=== PATIENT | male | born 1955 | race African-American/Black ===

== ENCOUNTER 2021-11-29 19:29 | Inpatient (IN) | payer BC, MEDICARE ==
[~2021-11-29] VITALS: Ht 190.5 cm; Wt 132.9 kg
[2021-11-29 21:16] LABS: HEMATOCRIT. 35.8 % (42.0-52.0); HEMOGLOBIN. 11.7 g/dL (14.0-18.0); MEAN CORPUSCULAR HEMOGLOBIN 27.6 pg (28.0-32.0); MEAN CORPUSCULAR VOLUME 84.1 fL (80.0-94.0); MEAN PLATELET VOLUME 8.7 fl (7.4-10.4); PLATELET 112 x1000/uL (130-400); RED BLOOD CELL COUNT 4.25 mill/uL (4.7-6.1); RED CELL DISTRIBUTION WIDTH 17.6 % (11.6-14.6)
[2021-11-29 21:17] LABS: CHLORIDE 98 mEq/L (98-107)
[2021-11-29 21:19] LABS: INR 1.3; PROTHROMBIN TIME 14.1 sec (9.6-11.0)
[2021-11-29] MEDS ORDERED: FUROSEMIDE 100MG/10ML VIAL IVP ONE (21:30)
[2021-11-29] MEDS ORDERED: ASPIRIN 325MG EC TABLET PO ONE (21:45)
[2021-11-29 21:53] LABS: PLATELET ESTIMATE DECREASED
[2021-11-29] MEDS ORDERED: HEPARIN 25,000 UNITS PREMIX 250 ML IV PRN (22:00)
[2021-11-29] MEDS ORDERED: HEPARIN 5000 UNITS/ML VIAL IV SCH (22:00)
[2021-11-29] MEDS ORDERED: HEPARIN BOLUS PRN aPTT 30-44 IV (22:15)
[2021-11-29] MEDS ORDERED: ASPIRIN 325MG EC TABLET PO SCH (23:45)
[2021-11-29] MEDS ORDERED: FUROSEMIDE 100MG/10ML VIAL IVP SCH (23:45)
[2021-11-30] VITALS (7 sets, daily range): BP systolic 101–123; BP diastolic 50–68
[2021-11-30] MEDS ORDERED: IPRATROPIUM/ALBUTEROL 0.5-3(2.5)MG/3ML NEB NEB PRN
[2021-11-30] MEDS ORDERED: LORAZEPAM 2MG/ML CPJ IV PRN
[2021-11-30] MEDS ORDERED: MORPHINE SULFATE 2 MG/ML CPJ (NOT FOR IM USE) IV PRN
[2021-11-30] MEDS ORDERED: CLONIDINE 0.1MG TABLET PO PRN
[2021-11-30] MEDS ORDERED: HEPARIN 60 UNITS/KG BOLUS IV SCH (00:30)
[2021-11-30] MEDS ORDERED: HEPARIN BOLUS PRN aPTT 30-44 IV (01:00)
[2021-11-30] MEDS ORDERED: HEPARIN 25,000 UNITS PREMIX 250 ML IV SCH (01:00)
[2021-11-30] MEDS ORDERED: HEPARIN BOLUS PRN aPTT <30 IV (01:00)
[2021-11-30] MEDS: ONDANSETRON HCL 4MG/2ML INJ IV PRN (02:26)
[2021-11-30 05:11] LABS: HEMATOCRIT. 35.2 % (42.0-52.0); HEMOGLOBIN. 11.3 g/dL (14.0-18.0); MEAN CORPUSCULAR VOLUME 83.9 fL (80.0-94.0); MEAN PLATELET VOLUME 9.3 fl (7.4-10.4); PLATELET 120 x1000/uL (130-400); RED CELL DISTRIBUTION WIDTH 17.4 % (11.6-14.6)
[2021-11-30 05:23] LABS: CREATINE KINASE MB FRACTION 1.7 ng/mL (0.5-3.6)
[2021-11-30 08:22] LABS: CREATINE KINASE MB FRACTION 2.4 ng/mL (0.5-3.6)
[2021-11-30] MEDS ORDERED: FUROSEMIDE 40MG/4ML VIAL IV SCH ×2 (09:00→18:00)
[2021-11-30 09:16] LABS: CLARITY URINE CLOUDY (CLEAR); COLOR URINE ORANGE (YELLOW); KETONES URINE TRACE (NEGATIVE); LEUKOCYTE ESTERASE URINE TRACE (NEGATIVE); NITRITE URINE POSITIVE (NEGATIVE); OCCULT BLOOD URINE TRACE (NEGATIVE); PROTEIN URINE 2+ (NEGATIVE); SPECIFIC GRAVITY URINE 1.017 (1.005-1.030)
[2021-11-30 09:23] LABS: *AMPHETAMINES SCREEN URINE NEGATIVE (NEGATIVE); *BARBITURATES SCREEN URINE NEGATIVE (NEGATIVE); *BENZODIAZEPINES SCREEN URINE NEGATIVE (NEGATIVE); *COCAINE SCREEN URINE NEGATIVE (NEGATIVE); CANNABINOID URINE SCREEN NEGATIVE (NEGATIVE); METHADONE URINE SCREEN NEGATIVE (NEGATIVE); OPIATES URINE SCREEN PRESUMTIVE POSITIVE (NEGATIVE); PHENCYCLIDINE URINE SCREEN NEGATIVE (NEGATIVE)
[2021-11-30 10:25] LABS: PLATELET ESTIMATE SLIGHTLY DECREASED
[2021-11-30] MEDS ORDERED: CEFTRIAXONE 1 G PREMIX 50 ML IV SCH (10:45)
[2021-11-30] MEDS ORDERED: NALOXONE HCL 0.4MG/ML VIAL IV PRN (10:45)
[2021-11-30] MEDS ORDERED: DEXTROSE 50% WATER 50ML SYRINGE IV PRN (10:45)
[2021-11-30] MEDS ORDERED: HYDROCODONE/ACETAMINOPHEN 5/325MG TABLET PO PRN ×2 (10:45)
[2021-11-30] MEDS ORDERED: CEFTRIAXONE 1,000 MG in DEXTROSE 5% WATER 50 ML IV SCH ×2 (11:00→13:00)
[2021-11-30] MEDS: BLOOD SUGAR DIAGNOSTIC STRIP TEST SCH ×4 (12:14→21:35)
[2021-11-30] MEDS: INSULIN LISPRO 100 UNITS/ML SUBCUT SCH ×3 (12:15→21:00)
[2021-11-30] MEDS: ENOXAPARIN 150MG/ML SYR SUBCUT SCH (12:22)
[2021-11-30] MEDS: METOPROLOL TARTRATE 25MG TABLET PO SCH ×2 (12:22→21:00)
[2021-11-30] MEDS: ACETAMINOPHEN 325MG TABLET PO PRN (16:19)
[2021-11-30 16:20] LABS: BG BASE EXCESS -2.2 mmol/L (-2.0-2.0); BG CARBOXYHEMOGLOBIN 0.9 % (0.5-1.5); BG DEOXYHEMOGLOBIN 3.6 % (0.0-5.0); BG FRACTION INSPIRED OXYGEN 36; BG HCO3 ACT 21.1 mmol/L (22.0-26.0); BG METHEMOGLOBIN 0.2 % (0.0-1.5); BG OXYGEN SATURATION 96.4 % (92.0-98.5); BG OXYHEMOGLOBIN 95.3 % (94.0-97.0); BG PCO2 31.6 mmHg (35.0-45.0); BG PH 7.442 (7.350-7.450); BG PO2 83.4 mmHg (75.0-100.0); BG TOTAL HEMOGLOBIN 12.6 g/dL (12.0-18.0); BG VENT MODE NASAL CANNULA
[2021-11-30] MEDS: FUROSEMIDE 100MG/10ML VIAL IV SCH (17:38)
[2021-12-01] VITALS (12 sets, daily range): BP systolic 92–137; BP diastolic 51–80
[2021-12-01] MEDS: FUROSEMIDE 100MG/10ML VIAL IV SCH (05:46)
[2021-12-01 06:29] LABS: HEMATOCRIT. 33.7 % (42.0-52.0); HEMOGLOBIN. 11.2 g/dL (14.0-18.0); MEAN CORPUSCULAR HEMOGLOBIN 27.5 pg (28.0-32.0); MEAN CORPUSCULAR VOLUME 82.7 fL (80.0-94.0); MEAN PLATELET VOLUME 10.2 fl (7.4-10.4); PLATELET 104 x1000/uL (130-400); RED BLOOD CELL COUNT 4.07 mill/uL (4.7-6.1); RED CELL DISTRIBUTION WIDTH 17.5 % (11.6-14.6)
[2021-12-01] MEDS: BLOOD SUGAR DIAGNOSTIC STRIP TEST SCH ×4 (07:30→21:00)
[2021-12-01 08:40] LABS: PLATELET ESTIMATE DECREASED
[2021-12-01] MEDS: INSULIN LISPRO 100 UNITS/ML SUBCUT SCH ×4 (08:53→21:00)
[2021-12-01] MEDS: CEFTRIAXONE 1,000 MG in DEXTROSE 5% WATER 50 ML IV SCH (08:54)
[2021-12-01] MEDS: METOPROLOL TARTRATE 25MG TABLET PO SCH ×3 (08:54→21:00)
[2021-12-01] MEDS: FAMOTIDINE 20MG/2ML VIAL IV SCH (08:55)
[2021-12-01] MEDS: ENOXAPARIN 150MG/ML SYR SUBCUT SCH (13:55)
[2021-12-01 14:15] LABS: PHOSPHORUS 4.5 mg/dL (2.5-4.9)
[2021-12-01] MEDS: ACETAMINOPHEN 325MG TABLET PO PRN (20:14)
[2021-12-01 22:55] LABS: BG BASE EXCESS -1.9 mmol/L (-2.0-2.0); BG DEOXYHEMOGLOBIN 9.5 % (0.0-5.0); BG FRACTION INSPIRED OXYGEN 32; BG HCO3 ACT 21.8 mmol/L (22.0-26.0); BG METHEMOGLOBIN 0.2 % (0.0-1.5); BG OXYGEN SATURATION 90.4 % (92.0-98.5); BG OXYHEMOGLOBIN 89.3 % (94.0-97.0); BG PCO2 34.2 mmHg (35.0-45.0); BG PH 7.423 (7.350-7.450); BG PO2 58.9 mmHg (75.0-100.0); BG SAMPLE SITE RIGHT RADIAL; BG TOTAL HEMOGLOBIN 12.8 g/dL (12.0-18.0); BG VENT MODE NASAL CANNULA
[2021-12-02] VITALS (12 sets, daily range): BP systolic 121–143; BP diastolic 58–70
[2021-12-02 06:58] LABS: HEMATOCRIT. 35.1 % (42.0-52.0); HEMOGLOBIN. 11.3 g/dL (14.0-18.0); MEAN CORPUSCULAR HEMOGLOBIN 26.6 pg (28.0-32.0); MEAN CORPUSCULAR VOLUME 82.5 fL (80.0-94.0); MEAN PLATELET VOLUME 10.1 fl (7.4-10.4); PLATELET 110 x1000/uL (130-400); RED BLOOD CELL COUNT 4.25 mill/uL (4.7-6.1); RED CELL DISTRIBUTION WIDTH 17.6 % (11.6-14.6)
[2021-12-02] MEDS: BLOOD SUGAR DIAGNOSTIC STRIP TEST SCH ×4 (07:30→20:57)
[2021-12-02] MEDS ORDERED: LIDOCAINE HCL/PF 1% 10 MG/ML 5ML VIAL ONE (08:59)
[2021-12-02] MEDS: METOPROLOL TARTRATE 25MG TABLET PO SCH ×2 (09:00→20:59)
[2021-12-02 09:28] LABS: NUCLEATED RED BLOOD CELLS 1 /100 WBC; PLATELET ESTIMATE DECREASED
[2021-12-02] MEDS: CEFTRIAXONE 1,000 MG in DEXTROSE 5% WATER 50 ML IV SCH (10:29)
[2021-12-02] MEDS: FAMOTIDINE 20MG/2ML VIAL IV SCH (10:30)
[2021-12-02] MEDS: INSULIN LISPRO 100 UNITS/ML SUBCUT SCH ×4 (10:31→20:57)
[2021-12-02] MEDS: ENOXAPARIN 150MG/ML SYR SUBCUT SCH (12:25)
[2021-12-02] MEDS: MEROPENEM 1,000 MG in SODIUM CHLORIDE 0.9% 100 ML IV SCH (16:43)
[2021-12-03] VITALS (11 sets, daily range): BP systolic 100–151; BP diastolic 51–76
[2021-12-03 06:10] LABS: HEMATOCRIT. 35.4 % (42.0-52.0); HEMOGLOBIN. 11.6 g/dL (14.0-18.0); MEAN CORPUSCULAR HEMOGLOBIN 26.8 pg (28.0-32.0); MEAN CORPUSCULAR VOLUME 81.8 fL (80.0-94.0); MEAN PLATELET VOLUME 9.4 fl (7.4-10.4); PLATELET 103 x1000/uL (130-400); RED BLOOD CELL COUNT 4.33 mill/uL (4.7-6.1); RED CELL DISTRIBUTION WIDTH 17.4 % (11.6-14.6)
[2021-12-03] MEDS: INSULIN LISPRO 100 UNITS/ML SUBCUT SCH ×4 (08:00→21:34)
[2021-12-03] MEDS: BLOOD SUGAR DIAGNOSTIC STRIP TEST SCH ×4 (08:10→21:29)
[2021-12-03] MEDS: METOPROLOL TARTRATE 25MG TABLET PO SCH ×2 (09:00→21:27)
[2021-12-03 09:41] LABS: NUCLEATED RED BLOOD CELLS 1 /100 WBC
[2021-12-03 09:43] LABS: PLATELET ESTIMATE DECREASED
[2021-12-03] MEDS: FAMOTIDINE 20MG/2ML VIAL IV SCH (10:54)
[2021-12-03 12:40] LABS: INR 1.2; PARTIAL THROMBOPLASTIN TIME 29.1 sec (23.4-31.0); PROTHROMBIN TIME 12.4 sec (9.6-11.0)
[2021-12-03 13:28] LABS: VITAMIN B12 SERUM > 2000.0 pg/mL (211-911)
[2021-12-03] MEDS: MEROPENEM 1,000 MG in SODIUM CHLORIDE 0.9% 100 ML IV SCH (16:47)
[2021-12-03] MEDS: ACETAMINOPHEN 325MG TABLET PO PRN ×2 (17:07→21:26)
[2021-12-03] MEDS: ONDANSETRON HCL 4MG/2ML INJ IV PRN (22:31)
[2021-12-04] VITALS (12 sets, daily range): BP systolic 102–122; BP diastolic 44–75
[2021-12-04 06:39] LABS: HEMATOCRIT. 36.9 % (42.0-52.0); HEMOGLOBIN. 12.2 g/dL (14.0-18.0); MEAN CORPUSCULAR HEMOGLOBIN 26.9 pg (28.0-32.0); MEAN CORPUSCULAR VOLUME 81.4 fL (80.0-94.0); PLATELET 98 x1000/uL (130-400); RED BLOOD CELL COUNT 4.53 mill/uL (4.7-6.1); RED CELL DISTRIBUTION WIDTH 17.1 % (11.6-14.6)
[2021-12-04] MEDS: BLOOD SUGAR DIAGNOSTIC STRIP TEST SCH ×4 (07:30→21:20)
[2021-12-04] MEDS: FAMOTIDINE 20MG/2ML VIAL IV SCH (08:36)
[2021-12-04] MEDS: ACETAMINOPHEN 325MG TABLET PO PRN (08:36)
[2021-12-04] MEDS: INSULIN LISPRO 100 UNITS/ML SUBCUT SCH ×4 (08:38→21:18)
[2021-12-04] MEDS: METOPROLOL TARTRATE 25MG TABLET PO SCH ×2 (09:00→21:16)
[2021-12-04 10:32] LABS: NUCLEATED RED BLOOD CELLS 1 /100 WBC; PLATELET ESTIMATE SLIGHTLY DECREASED
[2021-12-04] MEDS: MEROPENEM 1,000 MG in SODIUM CHLORIDE 0.9% 100 ML IV SCH (17:02)
[2021-12-04 21:51] LABS: HEPATITIS B SURFACE ANTIGEN NEGATIVE
[2021-12-05] VITALS (12 sets, daily range): BP systolic 91–141; BP diastolic 44–89
[2021-12-05] MEDS: BLOOD SUGAR DIAGNOSTIC STRIP TEST SCH ×4 (07:34→21:32)
[2021-12-05] MEDS: INSULIN LISPRO 100 UNITS/ML SUBCUT SCH ×4 (07:38→21:39)
[2021-12-05] MEDS ORDERED: LIDOCAINE HCL/PF 1% 10 MG/ML 5ML VIAL ONE ×2 (08:07→08:33)
[2021-12-05] MEDS ORDERED: FUROSEMIDE 40MG/4ML VIAL IVP SCH (09:00)
[2021-12-05] MEDS: METOPROLOL TARTRATE 25MG TABLET PO SCH ×2 (09:18→21:00)
[2021-12-05] MEDS: FAMOTIDINE 20MG/2ML VIAL IV SCH (09:18)
[2021-12-05 13:37] LABS: GLUCOSE CSF 145 mg/dL (41-75)
[2021-12-05] MEDS: MEROPENEM 1,000 MG in SODIUM CHLORIDE 0.9% 100 ML IV SCH (15:05)
[2021-12-05] MEDS: ACETAMINOPHEN 325MG TABLET PO PRN (16:56)
[2021-12-06] VITALS (54 sets, daily range): BP systolic 68–114; BP diastolic 26–67
[2021-12-06 06:10] LABS: PHOSPHORUS 5.2 mg/dL (2.5-4.9)
[2021-12-06 06:16] LABS: HEMATOCRIT. 35.7 % (42.0-52.0); HEMOGLOBIN. 11.6 g/dL (14.0-18.0); MEAN CORPUSCULAR HEMOGLOBIN 26.6 pg (28.0-32.0); MEAN CORPUSCULAR VOLUME 81.9 fL (80.0-94.0); MEAN PLATELET VOLUME 10.5 fl (7.4-10.4); PLATELET 103 x1000/uL (130-400); RED BLOOD CELL COUNT 4.36 mill/uL (4.7-6.1); RED CELL DISTRIBUTION WIDTH 17.8 % (11.6-14.6)
[2021-12-06] MEDS: BLOOD SUGAR DIAGNOSTIC STRIP TEST SCH ×4 (07:30→21:00)
[2021-12-06] MEDS: METOPROLOL TARTRATE 25MG TABLET PO SCH ×2 (08:54→21:00)
[2021-12-06] MEDS: FAMOTIDINE 20MG/2ML VIAL IV SCH (09:07)
[2021-12-06] MEDS: INSULIN LISPRO 100 UNITS/ML SUBCUT SCH ×4 (09:08→21:27)
[2021-12-06] MEDS ORDERED: NOREPINEPHRINE 32 MG in DEXT 5% WATER 218 ML IV PRN (13:30)
[2021-12-06 13:40] LABS: BG BASE EXCESS -1.7 mmol/L (-2.0-2.0); BG CARBOXYHEMOGLOBIN 0.7 % (0.5-1.5); BG FRACTION INSPIRED OXYGEN 40; BG HCO3 ACT 23.3 mmol/L (22.0-26.0); BG METHEMOGLOBIN 0.1 % (0.0-1.5); BG OXYGEN SATURATION 90.9 % (92.0-98.5); BG OXYHEMOGLOBIN 90.2 % (94.0-97.0); BG PCO2 40.3 mmHg (35.0-45.0); BG PH 7.379 (7.350-7.450); BG PO2 64.2 mmHg (75.0-100.0); BG SAMPLE SITE RIGHT BRACHIAL; BG TOTAL HEMOGLOBIN 12.5 g/dL (12.0-18.0); BG VENT MODE NASAL CANNULA
[2021-12-06] MEDS ORDERED: SODIUM CHLORIDE 0.9% 500 ML IV ONE (14:00)
[2021-12-06 15:17] LABS: PLATELET ESTIMATE DECREASED
[2021-12-06] MEDS: MEROPENEM 1,000 MG in SODIUM CHLORIDE 0.9% 100 ML IV SCH (16:47)
[2021-12-06] MEDS: MIDODRINE HCL 5MG TABLET PO SCH (16:47)
[2021-12-06 21:52] LABS: BG BASE EXCESS -3.2 mmol/L (-2.0-2.0); BG CARBOXYHEMOGLOBIN 1.2 % (0.5-1.5); BG FRACTION INSPIRED OXYGEN 44; BG METHEMOGLOBIN 0.2 % (0.0-1.5); BG OXYGEN SATURATION 95.9 % (92.0-98.5); BG OXYHEMOGLOBIN 94.6 % (94.0-97.0); BG PCO2 34.6 mmHg (35.0-45.0); BG PO2 83.2 mmHg (75.0-100.0); BG SAMPLE SITE RIGHT RADIAL; BG TOTAL HEMOGLOBIN 12.7 g/dL (12.0-18.0); BG VENT MODE NASAL CANNULA
[2021-12-07] VITALS (46 sets, daily range): BP systolic 81–128; BP diastolic 31–71
[2021-12-07] MEDS: BLOOD SUGAR DIAGNOSTIC STRIP TEST SCH ×3 (05:54→17:21)
[2021-12-07 05:55] LABS: HEMATOCRIT. 34.4 % (42.0-52.0); MEAN CORPUSCULAR HEMOGLOBIN 26.4 pg (28.0-32.0); MEAN CORPUSCULAR VOLUME 82.5 fL (80.0-94.0); MEAN PLATELET VOLUME 11.1 fl (7.4-10.4); PLATELET 134 x1000/uL (130-400); RED BLOOD CELL COUNT 4.17 mill/uL (4.7-6.1); RED CELL DISTRIBUTION WIDTH 17.8 % (11.6-14.6)
[2021-12-07] MEDS: INSULIN LISPRO 100 UNITS/ML SUBCUT SCH ×3 (06:07→17:25)
[2021-12-07] MEDS: ACETAMINOPHEN 325MG TABLET PO PRN ×2 (08:52→15:03)
[2021-12-07] MEDS: MIDODRINE HCL 5MG TABLET PO SCH ×3 (08:52→17:18)
[2021-12-07] MEDS: FAMOTIDINE 20MG/2ML VIAL IV SCH (09:35)
[2021-12-07 13:04] LABS: PLATELET ESTIMATE NORMAL
[2021-12-07] MEDS: MEROPENEM 1,000 MG in SODIUM CHLORIDE 0.9% 100 ML IV SCH (15:44)
[2021-12-11 10:22] LABS: *HSV 1 DNA PCR NEGATIVE
[2021-12-11 10:25] LABS: *HSV 2 DNA PCR NEGATIVE
== END 2021-12-07 21:10 | disposition short-term general hospital (02) | DRG 853 ==
LOC: ER 19:29 → MICUSO 23:31 → 5EST 11-30 11:52 → MICUSO 12-06 14:20
PROVIDERS: ADMIT Internal Medicine Nephrology; ATTEND Internal Medicine Nephrology
PROC: 02HV33Z Insertion of Infusion Device into Superior Vena Cava, Percutaneous Approach (ICD-10-PCS; 2021-12-02)
PROC: B548ZZA Ultrasonography of Superior Vena Cava, Guidance (ICD-10-PCS; 2021-12-02)
PROC: 5A1D70Z Performance of Urinary Filtration, Intermittent, Less than 6 Hours Per Day (ICD-10-PCS; 2021-12-03)
PROC: 0JBQ0ZZ Excision of Right Foot Subcutaneous Tissue and Fascia, Open Approach (ICD-10-PCS; principal; 2021-12-04)
PROC: 0JBP0ZZ Excision of Left Lower Leg Subcutaneous Tissue and Fascia, Open Approach (ICD-10-PCS; 2021-12-04)
PROC: 5A1D70Z Performance of Urinary Filtration, Intermittent, Less than 6 Hours Per Day (ICD-10-PCS; 2021-12-04)
PROC: 4A00X4Z Measurement of Central Nervous Electrical Activity, External Approach (ICD-10-PCS; 2021-12-04)
PROC: B01B1ZZ Fluoroscopy of Spinal Cord using Low Osmolar Contrast (ICD-10-PCS; 2021-12-05)
PROC: 009Y3ZZ Drainage of Lumbar Spinal Cord, Percutaneous Approach (ICD-10-PCS; 2021-12-05)
PROC: 5A1D70Z Performance of Urinary Filtration, Intermittent, Less than 6 Hours Per Day (ICD-10-PCS; 2021-12-06)
DX: A41.59 Other Gram-negative sepsis (principal); G92.8 Other toxic encephalopathy; J96.21 Acute and chronic respiratory failure with hypoxia; R65.21 Severe sepsis with septic shock; I21.4 Non-ST elevation (NSTEMI) myocardial infarction; I50.43 Acute on chronic combined systolic (congestive) and diastolic (congestive) heart failure; E44.0 Moderate protein-calorie malnutrition; E87.1 Hypo-osmolality and hyponatremia; N39.0 Urinary tract infection, site not specified; N17.9 Acute kidney failure, unspecified; I13.0 Hypertensive heart and chronic kidney disease with heart failure and stage 1 through stage 4 chronic kidney disease, or unspecified chronic kidney disease; B96.89 Other specified bacterial agents as the cause of diseases classified elsewhere; E11.65 Type 2 diabetes mellitus with hyperglycemia; E66.9 Obesity, unspecified; I25.10 Atherosclerotic heart disease of native coronary artery without angina pectoris; I48.91 Unspecified atrial fibrillation; Z20.822 Contact with and (suspected) exposure to COVID-19; D63.8 Anemia in other chronic diseases classified elsewhere; R74.01 Elevation of levels of liver transaminase levels; E11.22 Type 2 diabetes mellitus with diabetic chronic kidney disease; N18.9 Chronic kidney disease, unspecified; Z79.4 Long term (current) use of insulin; Z88.0 Allergy status to penicillin; Z68.36 Body mass index [BMI] 36.0-36.9, adult; Z95.5 Presence of coronary angioplasty implant and graft; Z74.01 Bed confinement status; Z79.01 Long term (current) use of anticoagulants; Z89.422 Acquired absence of other left toe(s); S81.812A Laceration without foreign body, left lower leg, initial encounter; S91.301A Unspecified open wound, right foot, initial encounter
CPT/HCPCS: 36415; 36556; 36600; 62328; 70551; 71045; 71250; 74176; 76770; 76937; 78580; 80048; 80053; 80305; 81003; 82140; 82375; 82550; 82553; 82607; 82805; 82945; 82962; 83605; 83735; 83880; 83970; 84100; 84145; 84157; 84443; 84484; 85025; 86592; 86705; 86709; 86788; 86789; 86803; 87070; 87077; 87340; 87426; 87529; 87899; 93005; 93306; 93923; 93970; 99291; C1752; J0696; J1644; J1650; J1815; J1940; J2060; J2185; J2270; J2405; J3490; J7050; J7060; A4315